=== PATIENT | female | born 1940 | race Caucasian/White ===

== ENCOUNTER 2018-04-06 17:40 | Emergency (ER) | payer MEDICARE, OTHER ==
--- NOTE | 2018-04-06 18:53 | ED PDOC ---
HPI: Abdomen Time Seen by Provider: 04/06/18 18:40 Chief Complaint (Nursing): Abdominal Pain Chief Complaint (Provider): NVD History Per: Patient History/Exam Limitations: no limitations Onset/Duration Of Symptoms: Hrs (three) Outside of [place] travel?: No Current Symptoms Are (Timing): Still Present Severity: Mild Quality Of Discomfort: Dull Associated Symptoms: Chills, Nausea, Vomiting, Diarrhea. denies: Fever, Urinary Symptoms Additional Complaint(s): Pt presents to the ED complaining of suprapubic pain that is non-tender for the last three hours. Pt denies urinary symptoms, nausea, vomiting diarrhea, fever or any other complaints. Pt is in the third day of her menstrual cycle. Past Medical History Reviewed: Historical Data, Nursing Documentation, Vital Signs Vital Signs: Last Vital Signs Temp 96 F L 04/06/18 17:43 Pulse 54 L 04/06/18 17:43 Resp 18 04/06/18 17:43 BP 146/60 04/06/18 17:43 Pulse Ox 99 04/06/18 20:06 - Family History Family History: States: Unknown Family Hx - Home Medications Home Medications: Ambulatory Orders Medication Instructions Recorded Allopurinol [Zyloprim] 200 mg PO DAILY 04/06/18 Atorvastatin [Lipitor] 20 mg PO DAILY 04/06/18 Fosinopril Sodium 40 mg PO DAILY 04/06/18 Gabapentin [Neurontin] 300 mg PO TID 04/06/18 Insulin Aspart, Recombinant 5 unit SQ AC 04/06/18 [Novolog] Insulin Glargine,Hum.rec.anlog 10 unit SQ HS 04/06/18 [Lantus] Levothyroxine Sodium [Levoxyl] 75 mcg PO DAILY 04/06/18 Metoprolol Tartrate [Lopressor] 50 mg PO BID 04/06/18 Warfarin Sodium [Jantoven] 7.5 mg PO DAILY 04/06/18 amLODIPine [Norvasc] 5 mg PO BID 04/06/18 - Allergies Allergies/Adverse Reactions: Allergies Allergy/AdvReac Type Severity Reaction Status Date / Time No Known Allergies Allergy Verified 04/06/18 17:42 Review of Systems ROS Statement: Except As Marked, All Systems Reviewed And Found Negative Gastrointestinal: Positive for: Nausea, Vomiting, Abdominal Pain, Diarrhea Genitourinary Female: Negative for: Dysuria, Frequency Physical Exam - Reviewed Nursing Documentation Reviewed: Yes Vital Signs Reviewed: Yes - Physical Exam Appears: Positive for: Well, No Acute Distress, Uncomfortable Head Exam: Positive for: ATRAUMATIC, NORMAL INSPECTION, NORMOCEPHALIC Skin: Positive for: Normal Color, Dry. Negative for: Diaphoresis Eye Exam: Positive for: Normal appearance, EOMI, PERRL. Negative for: Nystagmus , Periorbital swelling, Periorbital tenderness, Conjunctival injection Neck: Positive for: Normal, Painless ROM, Supple. Negative for: Decreased ROM Cardiovascular/Chest: Positive for: Regular Rate, Rhythm. Negative for: Chest Non Tender, Edema, Gallop, Bradycardia, Tachycardia Respiratory: Positive for: Normal Breath Sounds. Negative for: Decreased Breath Sounds, Accessory Muscle Use, Crackles, Rales, Rhonchi, Stridor, Wheezing , Respiratory Distress Pulses-Carotid (L): 2+ Pulses-Carotid (R): 2+ Pulses-Radial (L): 2+ Pulses-Radial (R): 2+ Gastrointestinal/Abdominal: Positive for: Bowel Sounds, Soft. Negative for: Tenderness, Distended, Guarding, Rebound, Hernia, Asicites - Laboratory Results Result Diagrams: 04/06/18 19:05 - ECG O2 Sat by Pulse Oximetry: 99 Disposition - Clinical Impression Clinical Impression: Abdominal discomfort - Disposition Disposition: Transfer of Care Disposition Time: 20:07 Condition: STABLE Forms: [facility] ([place])
[2018-04-06] MEDS ORDERED: Sodium Chloride 0.9% 1,000 ML IV STA (18:55)
[2018-04-06 19:17] LABS: BASO # 0.1 K/uL (0.0-0.2); EOS # 0.2 K/uL (0.0-0.7); HEMOGLOBIN 14.3 g/dL (12.0-16.0); LYMPH # 1.4 K/uL (1.0-4.3); LYMPH % 19.4 % (20.0-40.0); MEAN CELL VOLUME 93.2 fl (81.0-99.0); MEAN CORPUSCULAR HEMOGLOBIN 32.9 pg (27.0-31.0); MEAN CORPUSCULAR HGB CONC 35.3 g/dL (33.0-37.0); MEAN PLATELET VOLUME 9.5 fl (7.2-11.7); MONO # 0.5 K/uL (0.0-0.8); MONO % 6.5 % (0.0-10.0); NEUT % 70.1 % (50.0-75.0); RBC 4.36 Mil/uL (3.80-5.20); RED CELL DISTRIBUTION WIDTH 13.9 % (11.5-14.5); WHITE BLOOD COUNT 7.1 K/uL (4.8-10.8)
[2018-04-06 19:30] LABS: PARTIAL THROMBOPLASTIN TIME 38.8 Seconds (25.6-37.1)
[2018-04-06 19:39] LABS: SQUAMOUS EPITHIAL 1 /hpf (0-5); URINE BILIRUBIN NEGATIVE (NEGATIVE); URINE BLOOD NEGATIVE (NEGATIVE); URINE CLARITY CLEAR (Clear); URINE COLOR STRAW (YELLOW); URINE GLUCOSE (UA) NEG (Normal); URINE LEUKOCYTE ESTERASE SMALL Leu/uL (Negative); URINE PROTEIN NEGATIVE (NEGATIVE); URINE UROBILINOGEN 0.2-1.0 mg/dL (0.2-1.0)
[2018-04-06] MEDS ORDERED: Iohexol 240 (50 ml) PO ONE (20:02)
[2018-04-06 20:32] LABS: ALB/GLOB RATIO 1.4 (1.0-2.1); ALBUMIN 4.4 g/dL (3.5-5.0); ALT/SGPT 43 U/L (9-52); AMYLASE 92 U/L (30-110); AST/SGOT 27 U/L (14-36); BLOOD UREA NITROGEN 25 mg/dl (7-17); CALCIUM 9.6 mg/dL (8.4-10.2); GFR AFRICAN-AMERICAN > 60; GFR NON-AFRICAN AMERICAN > 60; LIPASE 98 U/L (23-300)
[2018-04-06] MEDS ORDERED: Iohexol 240 (50 ml) ONE (21:07)
--- NOTE | 2018-04-06 21:25 | ED PDOC ---
- Laboratory Results Result Diagrams: 04/06/18 19:05 04/06/18 20:15 - ECG O2 Sat by Pulse Oximetry: 99 - Progress ED Course And Treament: Case endorsed to designer/writer from Adrian WILLARD pending labs, imaging EXAM: CT Abdomen and Pelvis With Intravenous Contrast CLINICAL HISTORY: 77 years old, female; Pain; Abdominal pain; Generalized; Prior surgery; Surgery date: 6+ months; Surgery type: Gall bladder removed. Hysterectomy; Additional info: R/O acute abdomen TECHNIQUE: Axial computed tomography images of the abdomen and pelvis with intravenous contrast. All CT scans at this facility use one or more dose reduction techniques, viz.: automated exposure control; ma/kV adjustment per patient size (including targeted exams where dose is matched to indication; i.e. head); or iterative reconstruction technique. Coronal and sagittal reformatted images were created and reviewed. CONTRAST: 90 mL of [id number] administered intravenously. COMPARISON: No relevant prior studies available. FINDINGS: Limitations: Motion artifact - mild. Lung bases: Minimal atelectasis/scarring. Heart: Valvular calcifications. Mediastinum: Small hiatal hernia. ABDOMEN: Liver: Fatty infiltration. Small peripheral calcification along dome. 3.0 x 2.3 x 2.2 cm peripherally calcified hypodense lesion within left lobe. Gallbladder and bile ducts: Cholecystectomy. No significant ductal dilation. Pancreas: No ductal dilation. No mass. Spleen: No splenomegaly. Adrenals: No mass. Kidneys and ureters: Few too small to characterize lesions within LEFT kidney. Subcentimeter left renal angiomyolipoma. No hydronephrosis. Stomach and bowel: Segmental areas of mild mural thickening vs underdistention of left colon. No associated inflammatory stranding. No obstruction. PELVIS Appendix: Normal caliber. No inflammation. Bladder: Distended bladder. Reproductive: Hysterectomy. ABDOMEN and PELVIS: Intraperitoneal space: No significant fluid collection. No free air. Bones/joints: No acute fracture. Soft tissues: Tiny umbilical hernia containing fat. Vasculature: Mild atherosclerotic disease. No aneurysm. Lymph nodes: No pathologically enlarged lymph nodes. IMPRESSION: 1. Mild colitis versus underdistention. Clinical correlation is needed. 2. Liver lesion, incompletely characterized. Compare with prior examinations if available otherwise suggest nonemergent MRI. 3. Incidental/non-acute findings are described above. EXAM: CT Head Without Intravenous Contrast CLINICAL HISTORY: 77 years old, female; Pain; Headache; Headache not specified TECHNIQUE: Axial computed tomography images of the head/brain without intravenous contrast. All CT scans at this facility use one or more dose reduction techniques, viz.: automated exposure control; ma/kV adjustment per patient size (including targeted exams where dose is matched to indication; i.e. head); or iterative reconstruction technique. Coronal and sagittal reformatted images were created and reviewed. COMPARISON: No relevant prior studies available. FINDINGS: Brain: Omwi-cl-yglqpfet atrophy. No intracranial hemorrhage. 0.9 x 0.5 x 0.8 cm dural calcification vs calcified meningioma along left frontal convexity. Few scattered subtle foci of decreased attenuation within periventricular/subcortical white matter. No definite edema. Ventricles: No hydrocephalus. Bones/joints: No acute fracture. Mild degenerative changes of temporomandibular joints. Soft tissues: Unremarkable. Vasculature: Minimal atherosclerotic disease of intracranial arteries. Sinuses: No acute sinusitis. Mastoid air cells: No mastoid effusion. Orbits: Unremarkable as visualized. IMPRESSION: 1. Nonspecific white matter changes. Acute infarction may be CT occult within first 24 hours. If a focal deficit persists, consider followup CT or MRI for further evaluation. 2. Incidental/non-acute findings are described above. On re-eval, patient states she is feeling better. Tolerated PO. Patient educated on findings, discharged with rx Cipro (dose given in ED), Zofran Advised follow up PMD 2-3 days. Advised fluids, bland diet. Return precautions given Disposition - Clinical Impression Clinical Impression: Abdominal pain, Headache, UTI (urinary tract infection) - POA Present On Arrival: None - Disposition Referrals: [facility] [Outside] Disposition: Routine/Home Disposition Time: 00:14 Condition: STABLE Prescriptions: Ciprofloxacin HCl [Cipro] 500 mg PO BID #13 tab Ondansetron ODT [Zofran ODT] 4 mg PO Q8 PRN #10 odt PRN Reason: Nausea/Vomiting Instructions: Urinary Tract Infections in Adults, Headache, Adult, Acute Abdomen (Belly Pain), Adult (DC) Forms: [facility] ([place])
[2018-04-06] MEDS ORDERED: Sodium Chloride 0.9% 100 ML ONE (21:27)
[2018-04-06] MEDS ORDERED: Iohexol 300 100 ML IJ ONE (21:27)
--- NOTE | 2018-04-06 23:59 | CT ---
EXAM: CT Head Without Intravenous Contrast CLINICAL HISTORY: 77 years old, female; Pain; Headache; Headache not specified TECHNIQUE: Axial computed tomography images of the head/brain without intravenous contrast. All CT scans at this facility use one or more dose reduction techniques, viz.: automated exposure control; ma/kV adjustment per patient size (including targeted exams where dose is matched to indication; i.e. head); or iterative reconstruction technique. Coronal and sagittal reformatted images were created and reviewed. COMPARISON: No relevant prior studies available. FINDINGS: Brain: Gqti-by-enbdxlev atrophy. No intracranial hemorrhage. 0.9 x 0.5 x 0.8 cm dural calcification vs calcified meningioma along left frontal convexity. Few scattered subtle foci of decreased attenuation within periventricular/subcortical white matter. No definite edema. Ventricles: No hydrocephalus. Bones/joints: No acute fracture. Mild degenerative changes of temporomandibular joints. Soft tissues: Unremarkable. Vasculature: Minimal atherosclerotic disease of intracranial arteries. Sinuses: No acute sinusitis. Mastoid air cells: No mastoid effusion. Orbits: Unremarkable as visualized. IMPRESSION: 1. Nonspecific white matter changes. Acute infarction may be CT occult within first 24 hours. If a focal deficit persists, consider followup CT or MRI for further evaluation. 2. Incidental/non-acute findings are described above.
--- NOTE | 2018-04-07 00:07 | CT ---
EXAM: CT Abdomen and Pelvis With Intravenous Contrast CLINICAL HISTORY: 77 years old, female; Pain; Abdominal pain; Generalized; Prior surgery; Surgery date: 6+ months; Surgery type: Gall bladder removed. Hysterectomy; Additional info: R/O acute abdomen TECHNIQUE: Axial computed tomography images of the abdomen and pelvis with intravenous contrast. All CT scans at this facility use one or more dose reduction techniques, viz.: automated exposure control; ma/kV adjustment per patient size (including targeted exams where dose is matched to indication; i.e. head); or iterative reconstruction technique. Coronal and sagittal reformatted images were created and reviewed. CONTRAST: 90 mL of [id number] administered intravenously. COMPARISON: No relevant prior studies available. FINDINGS: Limitations: Motion artifact - mild. Lung bases: Minimal atelectasis/scarring. Heart: Valvular calcifications. Mediastinum: Small hiatal hernia. ABDOMEN: Liver: Fatty infiltration. Small peripheral calcification along dome. 3.0 x 2.3 x 2.2 cm peripherally calcified hypodense lesion within left lobe. Gallbladder and bile ducts: Cholecystectomy. No significant ductal dilation. Pancreas: No ductal dilation. No mass. Spleen: No splenomegaly. Adrenals: No mass. Kidneys and ureters: Few too small to characterize lesions within LEFT kidney. Subcentimeter left renal angiomyolipoma. No hydronephrosis. Stomach and bowel: Segmental areas of mild mural thickening vs underdistention of left colon. No associated inflammatory stranding. No obstruction. PELVIS: Appendix: Normal caliber. No inflammation. Bladder: Distended bladder. Reproductive: Hysterectomy. ABDOMEN and PELVIS: Intraperitoneal space: No significant fluid collection. No free air. Bones/joints: No acute fracture. Soft tissues: Tiny umbilical hernia containing fat. Vasculature: Mild atherosclerotic disease. No aneurysm. Lymph nodes: No pathologically enlarged lymph nodes. IMPRESSION: 1. Mild colitis versus underdistention. Clinical correlation is needed. 2. Liver lesion, incompletely characterized. Compare with prior examinations if available otherwise suggest nonemergent MRI. 3. Incidental/non-acute findings are described above.
[2018-04-07 00:19] VITALS: PULSE 65
[2018-04-07 01:01] VITALS: BP 147/70; RESP 17; TEMP 98.1
[2018-04-14 02:50] VITALS: O2SAT 99
== END 2018-04-07 00:51 | disposition home or self-care (01) ==
LOC: H.ER 17:40
DX: N39.0 Urinary tract infection, site not specified (principal); R51 Headache; Z79.01 Long term (current) use of anticoagulants; Z79.4 Long term (current) use of insulin; Z90.710 Acquired absence of both cervix and uterus
CPT/HCPCS: 70450; 74177; 80053; 81003; 82150; 82948; 83690; 84484; 85025; 85610; 85730; 87086; 96374; 96376; 99284; J2405; J7030; Q9966; Q9967

== ENCOUNTER 2018-08-17 08:47 | Day surgery (SDC) | payer MEDICARE, OTHER ==
[2018-08-05 13:51] VITALS: BMI 26.1
[2018-08-17] MEDS ORDERED: Maxitrol Opht Susp ONE (08:59)
[2018-08-17] MEDS ORDERED: Tetracaine 0.5% Ophth 2 ML BOTTLE ONE (08:59)
[2018-08-17] MEDS ORDERED: Pilocarpine 1% Opht Soln ONE (09:00)
[2018-08-17] MEDS ORDERED: CA CL/K CL/NA CL 500 ML IR ONE (09:00)
[2018-08-17] MEDS ORDERED: STERILE IRRIGATING SOLUTION 45 ML IR ONE (09:00)
[2018-08-17] MEDS ORDERED: EPINEPHrine 1 mg/ml (1:1000) Inj ONE (09:00)
[2018-08-17] MEDS ORDERED: Chondroitin/Hyaluronate Opth Syringe KIT (0.55 ml-0.5 ml) IO ONE ×3 (09:01→12:25)
[2018-08-17] MEDS ORDERED: Carbachol 0.01% IO ONE ×2 (09:01→11:53)
[2018-08-17] MEDS ORDERED: Povidone Iodine 5% Opht SOLUTION ONE (09:02)
[2018-08-17] MEDS ORDERED: Lidocaine 2% MPF (5 ml) Inj ONE (09:02)
[2018-08-17] MEDS ORDERED: Flurbiprofen 0.03% Opht SOLN OS ONE ×2 (10:46→11:15)
[2018-08-17] MEDS ORDERED: Phenylephrine 2.5% Opht Soln OS ONE ×2 (10:47→11:15)
[2018-08-17] MEDS ORDERED: Tropicamide 1% Opht 150 DROP/15 ML OS ONE ×2 (10:48→11:15)
[2018-08-17] MEDS ORDERED: Lactated Ringer's 1,000 ML IV ONE (11:29)
[2018-08-17] MEDS ORDERED: Pilocarpine 1% Opht Soln OS ONE ×2 (11:45→12:25)
[2018-08-17] MEDS ORDERED: EPINEPHrine 1 mg/ml (1:1000) Inj IV ONE ×2 (11:51→12:25)
[2018-08-17] MEDS ORDERED: Neomycin/Polymyxin B Sulfates Sol for Irrigation 1 ml Amp IR ONE ×2 (11:52→12:25)
[2018-08-17] MEDS ORDERED: Tetracaine 0.5% Ophth 2 ML BOTTLE OU ONE (11:53)
[2018-08-17] MEDS ORDERED: BSS 15 ML SOL IR ONE ×2 (11:54→12:25)
[2018-08-17] MEDS ORDERED: Lidocaine 2% MPF (5 ml) Inj INJ ONE ×2 (11:56→12:25)
[2018-08-17] MEDS ORDERED: Povidone Iodine 5% Opht SOLUTION OU ONE ×2 (11:57→12:25)
[2018-08-17] MEDS ORDERED: Dextrose 5%/0.45% NS 1,000 ML IV ONE (12:00)
[2018-08-17] MEDS ORDERED: Dextrose 50% SYRINGE Inj (50 ml) IVP ONE (12:00)
[2018-08-17] MEDS ORDERED: Midazolam 2 MG/2 ML VIAL ONE (12:20)
[2018-08-17 13:03] VITALS: RESP 18
[2018-08-17 13:29] VITALS: O2SAT 98
[2018-08-17 14:17] VITALS: BP 138/76; PULSE 54; TEMP 98.3
--- NOTE | 2018-08-19 11:18 | OP ---
PROCEDURE DATE: 08/17/2018 SURGEON: GEOFFREY ROSA MD ANESTHESIOLOGIST: ULISES OSPINA MD ANESTHESIA: LOCAL / IV SEDATION PREOPERATIVE DIAGNOSIS: CATARACT LEFT EYE. POSTOPERATIVE DIAGNOSIS: CATARACT LEFT EYE. OPERATION: CLEAR CORNEAL PHACOEMULSIFICATION WITH LENS IMPLANT LEFT EYE. PREPARATION AND PROCEDURE: After the patient was prepped and draped in the usual manner for sterile ophthalmic surgery, local IV sedation was administered ; eye seals were applied to the upper and lower lid margins and an adult wire lid speculum was placed within the lids. Under microsurgical control, a two- step clear corneal incision was made into the anterior chamber. The initial incision was perpendicular to the corneal plane. The second incision with the keratome was placed at a 45-degree angle to the first incision. One cc of one percent Xylocaine MPF was instilled into the anterior chamber to achieve proper intraocular anesthesia. At this time, the Viscoelastic was injected into the anterior chamber for protection of the endothelium and for maintenance of the chamber depth. A 360-degree continuous curvilinear capsulorrhexis was performed using a pre-bent 25-gauge needle. Hydrodissection and hydrodelineation were performed using a Francois cannula and balanced salt solution. Utilizing the tip of the Francois cannula, the nucleus was rotated freely within the capsular bag. A standard one-handed phacoemulsification was utilized at this time for sculpting and rotating of the nucleus. The nucleus was fragmented in its entirety and aspirated without any consequence. A standard I&A was carried out for the residual cortical material. No residual material was noted within the capsular bag. The posterior capsule was noted to be clear. Additional Viscoelastic was injected into the capsular bag in preparation for lens implantation. After this has been satisfactorily achieved the intraocular lens injected through the corneal incision into the capsular bag. The intraocular lens was manipulated until it was properly oriented and the Viscoelastic was evacuated from the capsular bag and anterior chamber. The anterior chamber was reformed with balanced salt solution. The corneal incision was irrigated with BSS. The intraocular pressure was found to be within normal limits. This terminated the procedure. The speculum and lid drapes were removed. TobraDex ophthalmic suspension and Pilocarpine 1% drops one drop was applied to the eye. POSTOPERATIVE CONDITION: The patient was brought to the Post anesthesia Recovery area with stable vital signs. DGEOFFREY LEWIS MD
== END 2018-08-17 14:05 | disposition home or self-care (01) ==
LOC: H.OPSURG 08:47
PROVIDERS: ATTEND Ophthalmology
DX: H25.812 Combined forms of age-related cataract, left eye (principal); I48.91 Unspecified atrial fibrillation; E11.22 Type 2 diabetes mellitus with diabetic chronic kidney disease; E03.9 Hypothyroidism, unspecified; N18.6 End stage renal disease
CPT/HCPCS: 66984; 82948; J0171; J2250; J3010; J7042; J7120; V2632

== ENCOUNTER 2018-10-05 09:34 | Day surgery (SDC) | payer MEDICARE, OTHER ==
[2018-10-05 09:46] VITALS: BMI 25.7
[2018-10-05] MEDS ORDERED: Phenylephrine 2.5% Opht Soln OD SCH (10:00)
[2018-10-05] MEDS ORDERED: Tropicamide 1% Opht 150 DROP/15 ML OD SCH (10:00)
[2018-10-05] MEDS ORDERED: Flurbiprofen 0.03% Opht SOLN OD SCH (10:00)
[2018-10-05] MEDS ORDERED: Tropicamide 1% Opht 150 DROP/15 ML OD ONE (10:15)
[2018-10-05] MEDS ORDERED: Flurbiprofen 0.03% Opht SOLN OD ONE (10:15)
[2018-10-05] MEDS ORDERED: Phenylephrine 2.5% Opht Soln OD ONE (10:15)
[2018-10-05] MEDS ORDERED: Lactated Ringer's 1,000 ML IV ONE (11:00)
[2018-10-05] MEDS ORDERED: Tetracaine 0.5% Ophth 2 ML BOTTLE ONE (11:01)
[2018-10-05] MEDS ORDERED: Maxitrol Opht Susp ONE (11:01)
[2018-10-05] MEDS ORDERED: EPINEPHrine 1 mg/ml (1:1000) Inj ONE (11:01)
[2018-10-05] MEDS ORDERED: Lidocaine 1% 20 MG/2 ML PF AMP ONE (11:01)
[2018-10-05] MEDS ORDERED: STERILE IRRIGATING SOLUTION 45 ML IR ONE (11:02)
[2018-10-05] MEDS ORDERED: Chondroitin/Hyaluronate Opth Syringe KIT (0.55 ml-0.5 ml) IO ONE ×3 (11:02→11:27)
[2018-10-05] MEDS ORDERED: CA CL/K CL/NA CL 500 ML IR ONE (11:02)
[2018-10-05] MEDS ORDERED: Pilocarpine 1% Opht Soln ONE (11:02)
[2018-10-05] MEDS ORDERED: Povidone Iodine 5% Opht SOLUTION ONE (11:03)
[2018-10-05] MEDS ORDERED: Carbachol 0.01% IO ONE ×3 (11:03→11:27)
[2018-10-05] MEDS ORDERED: Lidocaine 1% Inj (20ml) TP ONE ×2 (11:09→11:27)
[2018-10-05] MEDS ORDERED: BSS 15 ML SOL IR ONE ×2 (11:09→11:27)
[2018-10-05] MEDS ORDERED: Povidone Iodine 5% Opht SOLUTION OU ONE ×2 (11:09→11:27)
[2018-10-05] MEDS ORDERED: EPINEPHrine 1 mg/ml (1:1000) Inj IV ONE ×2 (11:09→11:27)
[2018-10-05] MEDS ORDERED: Neomycin/Polymyxin B Sulfates Sol for Irrigation 1 ml Amp IR ONE ×2 (11:09→11:27)
[2018-10-05] MEDS ORDERED: Tetracaine 0.5% Ophth 2 ML BOTTLE OU ONE ×2 (11:09→11:27)
[2018-10-05] MEDS ORDERED: Pilocarpine 1% Opht Soln OS ONE ×2 (11:09→11:27)
[2018-10-05] MEDS ORDERED: Midazolam 2 MG/2 ML VIAL ONE (11:22)
[2018-10-05 12:34] VITALS: RESP 18
[2018-10-05 12:42] VITALS: TEMP 97.6
[2018-10-05 12:43] VITALS: BP 154/73; PULSE 58; O2SAT 97
--- NOTE | 2018-10-05 15:17 | OP ---
PROCEDURE DATE: 10/05/2018 SURGEON: GEOFFREY ROSA MD ANESTHESIOLOGIST: CAROLINA COBOS MD ANESTHESIA: LOCAL / IV SEDATION PREOPERATIVE DIAGNOSIS: CATARACT RIGHT EYE. POSTOPERATIVE DIAGNOSIS: CATARACT RIGHT EYE. OPERATION: CLEAR CORNEAL PHACOEMULSIFICATION WITH LENS IMPLANT RIGHT EYE. PREPARATION AND PROCEDURE: After the patient was prepped and draped in the usual manner for sterile ophthalmic surgery, local IV sedation was administered; eye seals were applied to the upper and lower lid margins and an adult wire lid speculum was placed within the lids. Under microsurgical control, a two-step clear corneal incision was made into the anterior chamber. The initial incision was perpendicular to the corneal plane. The second incision with the keratome was placed at a 45-degree angle to the first incision. One cc of one percent Xylocaine MPF was instilled into the anterior chamber to achieve proper intraocular anesthesia. At this time, the Viscoelastic was injected into the anterior chamber for protection of the endothelium and for maintenance of the chamber depth. A 360-degree continuous curvilinear capsulorrhexis was performed using a pre-bent 25-gauge needle. Hydrodissection and hydrodelineation were performed using a Francois cannula and balanced salt solution. Utilizing the tip of the Francois cannula, the nucleus was rotated freely within the capsular bag. A standard one-handed phacoemulsification was utilized at this time for sculpting and rotating of the nucleus. The nucleus was fragmented in its entirety and aspirated without any consequence. A standard I&A was carried out for the residual cortical material. No residual material was noted within the capsular bag. The posterior capsule was noted to be clear. Additional Viscoelastic was injected into the capsular bag in preparation for lens implantation. After this has been satisfactorily achieved the intraocular lens injected through the corneal incision into the capsular bag. The intraocular lens was manipulated until it was properly oriented and the Viscoelastic was evacuated from the capsular bag and anterior chamber. The anterior chamber was reformed with balanced salt solution. The corneal incision was irrigated with BSS. The intraocular pressure was found to be within normal limits. This terminated the procedure. The speculum and lid drapes were removed. TobraDex ophthalmic suspension and Pilocarpine 1% drops one drop was applied to the eye. POSTOPERATIVE CONDITION: The patient was brought to the Post anesthesia Recovery area with stable vital signs. DGEOFFREY LEWIS MD
== END 2018-10-05 13:30 | disposition home or self-care (01) ==
LOC: H.OPSURG 09:34
PROVIDERS: ATTEND Ophthalmology
DX: H25.811 Combined forms of age-related cataract, right eye (principal); I25.10 Atherosclerotic heart disease of native coronary artery without angina pectoris; E11.9 Type 2 diabetes mellitus without complications; I10 Essential (primary) hypertension
CPT/HCPCS: 66984; 82948; J0171; J2250; J7120; V2632